=== PATIENT | female | born 1980 | race Hispanic/Latino ===

== ENCOUNTER → 2024-07-23 | Day surgery (SDC) | payer OTHER ==
[2024-07-16 09:29] LABS: BASOPHILS # (AUTO) 0.1 (0.0-0.1); BASOPHILS % 1.1 % (0.0-1.0); EOSINOPHILS # (AUTO) 0.1 (0.0-0.4); EOSINOPHILS % 1.6 % (0.0-6.0); HEMATOCRIT 39.1 % (34.2-44.1); HEMOGLOBIN 12.7 g/dL (12.0-16.0); LYMPHOCYTES # (AUTO) 2.5 (1.0-3.2); LYMPHOCYTES % 38.6 % (18.0-39.1); MEAN CORPUSCULAR HGB CONC 32.5 g/dL (31-35); MEAN CORPUSCULAR VOLUME 95.4 fL (81-99); MONOCYTES # (AUTO) 0.4 (0.2-0.8); MONOCYTES % 6.5 % (4.4-11.3); NEUTROPHILS # (AUTO) 3.3 (2.1-6.9); NEUTROPHILS % 51.9 % (38.7-80.0); PLATELET COUNT 277 x10e3/uL (140-360); RED CELL DISTRIBUTION WIDTH 13.5 % (11.7-14.4); WHITE BLOOD COUNT 6.43 x10e3/uL (4.8-10.8)
[2024-07-16 09:50] LABS: ALBUMIN/GLOBULIN RATIO 1.2 (0.8-2.0); BILIRUBIN,TOTAL 0.4 mg/dL (0.2-1.2); CALCIUM 9.5 mg/dL (8.4-10.2); CREATININE, SERUM 0.86 mg/dL (0.57-1.11); TOTAL PROTEIN 7.3 g/dL (6.5-8.1)
[~2024-07-23] MED LIST: ADDERALL XR 2525 MG PO; AMITRIPTYLINE H25 MG PO; BIKTARVY 50-201 EACH PO; BUPIVACAINE HCL 0.5% INJ 30 ML VIAL INJ ONE; EPINEPHRIN0.3 MG/0.3; FLONASE ALLERG9.9 ML INH; HEPARIN SOD (PORCINE) 5,000 UNIT/ML VIAL ONE; HYDROCHLOROTHIA25 MG PO; LEVOCETIRIZINE D5 MG PO; LIDOCAINE 1% W/EPINEPHRINE 20 ML VIAL ONE; LIDOCAINE PATCH; MELOXICAM7.5 MG PO; MONTELUKAST SOD10 MG PO; NEURONTIN300 MG PO; OMEGA 3 1,0001 EACH PO; OMEPRAZOLE40 MG PO; OXYBUTYNIN CHLOR5 MG PO; SYMBICORT 16010.2 GM INH; TRICOR145 MG PO; VENTOLIN HFA18 GM INH; VITAMIN C500 MG PO
[2024-07-23] MEDS: LACTATED RINGER'S 1,000 ML ONE (07:56)
[2024-07-23] MEDS: CEFAZOLIN SODIUM 2 GM ONE (07:57)
[2024-07-23 10:28] VITALS: TEMP 97.8
[2024-07-23 11:35] VITALS: BP 123/76; PULSE 76; RESP 19; O2SAT 99
== END | disposition home or self-care (01) ==
LOC: OR 07:14
PROVIDERS: ATTEND Orthopaedic Surgery
DX: M87.051 Idiopathic aseptic necrosis of right femur (principal); M87.861 Other osteonecrosis, right tibia; S83.241A Other tear of medial meniscus, current injury, right knee, initial encounter; S83.281A Other tear of lateral meniscus, current injury, right knee, initial encounter; M67.51 Plica syndrome, right knee; M22.41 Chondromalacia patellae, right knee; M65.161 Other infective (teno)synovitis, right knee; Z21 Asymptomatic human immunodeficiency virus [HIV] infection status; E66.01 Morbid (severe) obesity due to excess calories; M06.9 Rheumatoid arthritis, unspecified; G89.29 Other chronic pain; M79.7 Fibromyalgia; E78.5 Hyperlipidemia, unspecified; K21.9 Gastro-esophageal reflux disease without esophagitis; J45.909 Unspecified asthma, uncomplicated; F41.9 Anxiety disorder, unspecified; F90.9 Attention-deficit hyperactivity disorder, unspecified type; Z88.6 Allergy status to analgesic agent; Z88.8 Allergy status to other drugs, medicaments and biological substances; Z01.812 Encounter for preprocedural laboratory examination; Z79.1 Long term (current) use of non-steroidal anti-inflammatories (NSAID); Z79.899 Other long term (current) drug therapy
CPT/HCPCS: 0232T; 27599; 29879; 29880; 36415; 76000; 80053; 81025; 85025; C1713; J0690; J1644